=== PATIENT | male | born 1960 | race Caucasian/White ===

== ENCOUNTER 2019-03-19 14:47 | Outpatient (CLI) | payer MEDICAID | END 2019-03-19 23:59 | disposition home or self-care (01) | LOC: RAD 14:47 | PROVIDERS: ATTEND Physician Assistant | DX: R13.14 Dysphagia, pharyngoesophageal phase (principal); R13.19 Other dysphagia; K21.9 Gastro-esophageal reflux disease without esophagitis | CPT/HCPCS: 74230 ==

== ENCOUNTER 2025-06-09 21:17 | Emergency (ER) | payer MEDICAID ==
[~2025-06-09] VITALS: Ht 180.3 cm; Wt 106.6 kg
[2025-06-09 21:31] VITALS: PULSE 103; RESP 16
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
[2025-06-09 21:55] VITALS: BP 132/88; TEMP 97.8; O2SAT 98
--- NOTE | 2025-06-09 22:14 | RADIOLOGY REPORT ---
CHEST RADIOGRAPH Indication: chest pain Technique: Single frontal view of the chest was obtained COMPARISON: None FINDINGS: Lines and Tubes: None Lungs: Clear Pleura: No effusion. No pneumothorax. Cardiomediastinal contours: Unremarkable Bones: Unremarkable IMPRESSION: 1. No acute disease.
[2025-06-09] MEDS: ibuprofen tablet 400 MG TABLET PO ONE (22:16)
[2025-06-09] MEDS ORDERED: HYDR-3965 PO (22:25)
== END 2025-06-09 22:39 | disposition home or self-care (01) ==
LOC: ER 21:18
DX: Z04.1 Encounter for examination and observation following transport accident (principal); Z88.1 Allergy status to other antibiotic agents; Z88.2 Allergy status to sulfonamides; V49.40XA Driver injured in collision with unspecified motor vehicles in traffic accident, initial encounter; Y93.89 Activity, other specified; Y92.89 Other specified places as the place of occurrence of the external cause; Y99.8 Other external cause status
CPT/HCPCS: 71045; 99283